=== PATIENT | male | born 1985 | race Caucasian/White ===

== ENCOUNTER → 2017-08-01 | Outpatient (CLI) | payer OTHER ==
[2017-08-01 15:57] LABS: HEMATOCRIT 46.5 % (42.0-52.0); HEMOGLOBIN 15.2 g/dL (13.5-18.0); MEAN PLATELET VOLUME 11.1 fl (7.4-10.4); RED BLOOD COUNT 5.42 M/mm3 (4.20-5.60); RED CELL DISTRIBUTION WIDTH 12.9 % (11.5-14.5); WHITE BLOOD COUNT 7.4 K/mm3 (4.8-10.8)
[2017-08-01 16:43] LABS: ALBUMIN 4.9 g/dL (3.5-5.0); BUN/CREATININE RATIO 16.2 (6.0-26.0); CALCIUM 9.9 mg/dL (8.4-10.2); TOTAL BILIRUBIN 0.6 mg/dL (0.2-1.3); TOTAL PROTEIN 7.7 g/dL (6.3-8.2)
== END ==
LOC: LAB 15:23
PROVIDERS: Family Medicine
DX: E66.9 Obesity, unspecified (principal)